=== PATIENT | female | born 1955 | race Caucasian/White ===

== ENCOUNTER → 2016-12-22 | Outpatient (CLI) | payer MEDICARE ==
[~2016-12-22] MED LIST: CIPR500T89 PO; GABA-283 PO; HYDR2TAB2 PO; LEVO150T7 PO; LEVO200T3 PO; LIPI20TA PO; METH4TAB28 PO; NORT50CA PO; OXYB5TAB10 PO; OXYC1SOL PO; OXYCODONE; PEPC1TAB4 PO; PROZ20CA11 PO; TRAZO50TA PO
[2016-12-22 17:32] LABS: CALCIUM LEVEL 9.1 MG/DL (8.8-10.2); CREATININE FOR GFR 1.02 MG/DL (0.55-1.02); GLOMERULAR FILTRATION RATE 58.8 (>45); POTASSIUM SERUM 4.2 MEQ/L (3.5-5.1)
== END ==
LOC: M SMT 12:17
PROVIDERS: ATTEND Nurse Practitioner Women's Health
DX: N20.0 Calculus of kidney (principal); R31.0 Gross hematuria
CPT/HCPCS: 36415; 80048; 81001; 87086; G0463

== ENCOUNTER → 2016-12-31 | Outpatient (CLI) | payer MEDICARE ==
[~2016-12-31] MED LIST changes: +ISOVUE-370 76% 100ML VIAL (Q9967) As Ordered ONE
--- NOTE | 2016-12-31 16:44 | REP ---
CT of the abdomen pelvis multiphase scanning without and with IV contrast: The study is initially performed without IV contrast. This is followed by IV contrast enhanced scanning during the to arterial phase of enhancement and later during the delayed equilibrium phase of enhancement. Comparison is 08/18/2015. There is an extrarenal pelvis of the right kidney as an anatomic variant. There is a staghorn calculus in the right kidney. This calculus has migrated into the extrarenal portion of the right renal pelvis as a change from the comparison study. After IV contrast on the delayed images there is mild right hydronephrosis and mild distension of the right renal pelvis as an interval change. Contrast can be seen filling the proximal most portion of the right ureter. There is no contrast in the mid or distal right ureter. Findings are compatible with obstructive uropathy of the right ureter, likely secondary to the migrated staghorn calculus. There is a barely visible 2 mm nonobstructive calculus at the extreme lower pole of the right kidney posteriorly. There is a 3 mm nonobstructive calculus in the lower pole moisés of the left kidney. There is no left hydronephrosis. The left ureter is opacified in entirety to the urinary bladder. The visualized lung cameron are unremarkable. The hepatic parenchyma, gallbladder, pancreas and spleen are unremarkable. The adrenals, abdominal aorta, bowel and mesentery are unremarkable. Pelvis: The bladder is unremarkable. There is a hysterectomy. The vaginal cuff and adnexa are unremarkable. There is no ascites or adenopathy. There is descending colon and sigmoid colon diverticulosis without diverticulitis. Impression: There is a staghorn calculus in the right renal pelvis. I suspect this calculus has migrated and now results in obstruction of the proximal right ureter with mild right hydronephrosis as discussed in the body of the report. There is a nonobstructive calculus in the lower pole of the right kidney. There is nonobstructive calculi in the left kidney. There is no left hydronephrosis. There is diverticulosis without diverticulitis. Signed by Fredrick Aleman MD 12/31/2016 04:36 P
== END ==
LOC: M RAD 12:52
PROVIDERS: ATTEND Nurse Practitioner Women's Health
DX: N20.0 Calculus of kidney (principal); R31.0 Gross hematuria; K57.30 Diverticulosis of large intestine without perforation or abscess without bleeding
CPT/HCPCS: 74178; Q9967

== ENCOUNTER → 2017-02-04 | Outpatient (REF) | payer MEDICARE ==
[~2017-02-04] MED LIST changes: -ISOVUE-370 76% 100ML VIAL (Q9967) As Ordered ONE
== END ==
LOC: M LABSMT 12:10
PROVIDERS: ATTEND Urology
DX: Z01.818 Encounter for other preprocedural examination (principal); N39.0 Urinary tract infection, site not specified

== ENCOUNTER 2017-02-10 17:32 | Emergency (ER) | payer MEDICARE ==
[~2017-02-10] VITALS: Ht 162.6 cm; Wt 71.3 kg
[~2017-02-10 17:32] MED LIST changes: -OXYCODONE
[2017-02-10] MEDS ORDERED: MORPHINE 4 MG/ML 1ML SYRINGE IV ONE (18:00)
[2017-02-10] MEDS ORDERED: ONDANSETRON 4MG/2ML VIAL (J2405) IV ONE (18:00)
[2017-02-10] MEDS ORDERED: NS 1,000 ML IV ONE (18:00)
[2017-02-10 18:45] LABS: MICROSCOPIC INDICATED? MAN YES (NO); RBC, URINE TNTC /hpf (0-3); WBC, URINE NONE SEEN /hpf (0-3)
[2017-02-10 18:46] LABS: BACTERIA, URINE NONE SEEN; HYALINE CAST, URINE NONE SEEN /lpf (0-1); MICROSCOPIC EXAM PERFORMED; SQUAMOUS EPITHELIAL CELL URINE NONE SEEN /hpf (SMALL AMT)
[2017-02-10 19:04] LABS: INR 0.88
[2017-02-10 19:05] LABS: BASO # 0.1 K/mm3 (0.0-0.2); BASO % 0.4 % (0.0-1.0); EOS # 0.1 K/mm3 (0.0-0.50); EOS % 0.8 % (0.0-3.0); LARGE UNSTAINED CELL # 0.1 K/mm3 (0.0-0.4); LARGE UNSTAINED CELL % 0.3 % (0.0-4.0); LYMPH # 1.8 K/mm3 (1.5-4.5); LYMPH % 11.7 % (24.0-44.0); MEAN CORPUSCULAR HEMOGLOBIN 31.8 pg (27.0-33.0); MEAN CORPUSCULAR HGB CONC 34.3 g/dl (32.0-36.5); MEAN CORPUSCULAR VOLUME 92.8 fl (80.0-96.0); MONO # 0.6 K/mm3 (0.0-0.8); MONO % 4.3 % (0.0-5.0); NEUTROPHILS # 12.4 K/mm3 (1.8-7.7); NEUTROPHILS % 82.5 % (36.0-66.0); PLATELET COUNT, AUTOMATED 297 k/mm3 (150-450); RED CELL DISTRIBUTION WIDTH 13.2 % (11.5-14.5)
[2017-02-10 19:31] LABS: ALBUMIN 3.7 GM/DL (3.2-5.2); ALBUMIN/GLOBULIN RATIO 1.09 (1.00-1.93); ALKALINE PHOSPHATASE 73 U/L (45-117); ALT/SGPT 24 U/L (12-78); ANION GAP 10 MEQ/L (8-16); AST/SGOT 14 U/L (15-37); BILIRUBIN,DIRECT 0.1 MG/DL (0.0-0.2); BILIRUBIN,TOTAL 0.6 MG/DL (0.2-1.0); BLOOD UREA NITROGEN 12 MG/DL (7-18); CALCIUM LEVEL 8.7 MG/DL (8.8-10.2); CARBON DIOXIDE LEVEL 25 MEQ/L (21-32); CHLORIDE LEVEL 106 MEQ/L (98-107); CREATININE FOR GFR 0.87 MG/DL (0.55-1.02); GLOMERULAR FILTRATION RATE > 60.0 (>45); GLUCOSE, FASTING 113 MG/DL (80-110); POTASSIUM SERUM 3.7 MEQ/L (3.5-5.1); SODIUM LEVEL 141 MEQ/L (136-145); TOTAL PROTEIN 7.1 GM/DL (6.4-8.2)
[2017-02-10] MEDS ORDERED: KETOROLAC 30 MG/ML VIAL (J1885) IV ONE (20:00)
[2017-02-10 20:32] VITALS: BP 145/100
[2017-02-11] MEDS ORDERED: OXYCODONE (07:38)
== END 2017-02-10 20:40 | disposition home or self-care (01) ==
LOC: M ED 17:32
DX: R31.9 Hematuria, unspecified (principal); R10.9 Unspecified abdominal pain; R11.0 Nausea; Z87.442 Personal history of urinary calculi; E07.9 Disorder of thyroid, unspecified; M51.9 Unspecified thoracic, thoracolumbar and lumbosacral intervertebral disc disorder; F32.9 Major depressive disorder, single episode, unspecified; Z87.891 Personal history of nicotine dependence

== ENCOUNTER 2017-02-11 07:00 | Inpatient (IN) | payer MEDICARE ==
[~2017-02-11] VITALS: Ht 162.6 cm; Wt 73.0 kg
[2017-02-11] MEDS ORDERED: OXYCODONE (07:38)
[2017-02-11] MEDS ORDERED: ROCURONIUM BROMIDE 50 MG/5 ML VIAL/SYRINGE As Ordered ONE (08:03)
[2017-02-11] MEDS ORDERED: PROPOFOL 200 MG/20 ML VIAL As Ordered ONE (08:03)
[2017-02-11] MEDS ORDERED: LIDOCAINE 2% INJ 100 MG/5 ML SDV (FOR ANES.) As Ordered ONE (08:03)
[2017-02-11] MEDS ORDERED: MIDAZOLAM INJ 2 MG/2 ML VIAL (J2250) As Ordered ONE (08:04)
[2017-02-11] MEDS ORDERED: fentaNYL 100 MCG/2 ML INJECTION (J3010) As Ordered ONE ×2 (08:04→09:24)
[2017-02-11] MEDS ORDERED: CONRAY-60 60% 50ML VIAL (Q9961) As Ordered ONE (08:10)
[2017-02-11] MEDS ORDERED: LR 1,000 ML IV ONE (08:15)
[2017-02-11] MEDS ORDERED: PERCOCET 5MG/325MG TAB PO PRN ×2 (08:45→10:30)
[2017-02-11] MEDS ORDERED: traZODone 50 MG TAB PO PRN (08:45)
[2017-02-11] MEDS ORDERED: MORPHINE 2 MG/ML 1ML SYRINGE IV PRN (08:45)
[2017-02-11] MEDS ORDERED: oxyBUTYnin 5 MG TAB PO PRN (08:45)
[2017-02-11] MEDS ORDERED: ACETAMINOPHEN TAB 650MG DOSE (2X325MG) PO PRN (08:45)
[2017-02-11] MEDS ORDERED: ONDANSETRON 4MG/2ML VIAL (J2405) IV PRN ×2 (08:45→10:30)
[2017-02-11] MEDS ORDERED: ePHEDrine SULFATE 25 MG/5 ML(5MG/ML) SYRINGE As Ordered ONE ×2 (09:04→09:06)
[2017-02-11] MEDS ORDERED: PHENYLephrine HCL 500 MCG/5 ML (100MCG/ML) SYRINGE (J2370) As Ordered ONE (09:06)
[2017-02-11] MEDS ORDERED: GLYCOPYRROLATE INJ 0.2 MG/ML 2 ML VIAL As Ordered ONE (09:23)
[2017-02-11] MEDS ORDERED: NEOSTIGMINE 1MG/ML 5 ML SYRINGE (J2710) As Ordered ONE (09:23)
[2017-02-11] MEDS ORDERED: ONDANSETRON 4MG/2ML VIAL (J2405) As Ordered ONE (09:24)
--- NOTE | 2017-02-11 10:29 | ROOPDOC ---
[facility] Report Of Operation Report of Operation DATE OF PROCEDURE: 02/11/2017 PREPROCEDURE DIAGNOSIS: Right kidney stone. POSTPROCEDURE DIAGNOSIS: Right kidney stone. PROCEDURE: Right percutaneous nephrolithotomy, Right antegrade nephrostogram with intraoperative interpretation of images, right ureteral stent placement. SURGEON: Rola Walton MD DATA SOLUTIONS ARCHITECT: None. ANESTHESIA: General. OPERATIVE INDICATIONS: This is a 61-year-old female who was found to have an approximately 2 cm right renal pelvic stone. She previously had a right nephroureteral stent placed. She was brought to the operating room today for the above listed procedure. DESCRIPTION OF PROCEDURE: The patient was brought to the operating room and general anesthesia was induced. Prophylactic antibiotics were infused. She then had a Arizmendi catheter placed under sterile conditions. She was then placed in the prone position with all pressure points appropriately padded. She was then prepped and draped in the usual sterile fashion in preparation for a right percutaneous nephrolithotomy. The previously placed right nephroureteral stent was then utilized to advance a Super Stiff Guidewire down the right collecting system. The nephroureteral stent was then removed leaving the wire in place. Next, an approximately 3-4 cm skin incision was made adjacent to the wire. I then advanced a dual lumen ureteral catheter over the wire into the right collecting system. An antegrade nephrostogram was performed and was negative for extravasation. It was notable for a the filling defect associated with the stone. At this point, the other lumen of the catheter was utilized to advance a Sensor wire down the right collecting system. The dual lumen ureteral catheter was then removed leaving both wires in place. The Sensor was then secured to the drape to serve as a safety wire. We then utilized the Super Stiff wire to advance a balloon dilator down into the right renal pelvis. The balloon was then inflated and left in place for a few seconds. We then advanced an access sheath over the balloon into the right collecting system. The balloon was then let down and removed leaving the access sheath and the wire in place. Next, we went in the access sheath with the nephroscope and the kidney was thoroughly examined and a large stone was seen in the renal pelvis. The stone was then fragmented into several small pieces and suctioned out using a CyberWand. We then examined the kidney thoroughly with the nephroscope as well as a flexible cystoscope and no additional stone fragments were seen. The proximal ureter was also examined and no stones were seen in it. At this point, the nephroscope was removed and a 7 Danish x 22-32 cm JJ ureteral stent was advanced over the wire down into the right collecting system. The wire was then removed and there were adequate curls of the stent in the right renal pelvis and in the bladder. At this point, the access sheath was then removed and the Sensor wire was utilized to advance an 18 [place] tip catheter into the right renal pelvis. The balloon was then inflated with about 3 mL of contrast. The wire was then removed and an antegrade nephrostogram was shot through the [place] tip catheter and it was negative for extravasation. It confirmed that the [place] catheter was in the correct place. The [place] tip catheter was then connected to gravity drainage and was secured to the skin with a #3-0 silk suture. Dressings were then applied and this marked conclusion of the procedure. The patient was then taken out of the prone position, awakened from anesthesia and transported to the recovery room in stable condition. ESTIMATED BLOOD LOSS: 25 mL. COMPLICATIONS: None. SPECIMENS: Kidney stone fragments. PLAN: The patient will be admitted to the hospital overnight. She will likely have her nephrostomy catheter and Arizmendi removed tomorrow. She will be discharged home with a stent in place for the next 2-3 weeks. ROLA WALTON MD Feb 11, 2017 10:29
[2017-02-11] MEDS ORDERED: MEPERIDINE INJ 25 MG/ML VIAL (J2175) IV PRN (10:30)
[2017-02-11] MEDS ORDERED: LR 1,000 ML IV SCH (10:30)
[2017-02-11] MEDS ORDERED: METOCLOPRAMIDE INJ 10MG/2ML VIAL (J2765) IV PRN (10:30)
[2017-02-11 10:41] LABS: MEAN CORPUSCULAR HEMOGLOBIN 32.4 pg (27.0-33.0); MEAN CORPUSCULAR HGB CONC 34.2 g/dl (32.0-36.5); MEAN CORPUSCULAR VOLUME 94.9 fl (80.0-96.0); WHITE BLOOD COUNT 10.2 K/mm3 (4.0-10.0)
--- NOTE | 2017-02-11 10:43 | REP ---
Retrograde pyelogram: 11 views. History: Percutaneous nephrolithotomy. 1 minute 5 seconds of fluoroscopy time is reported. Findings: A sequence of 11 last image hold fluoroscopic spot radiographs of the right abdomen document percutaneous nephrolithotomy procedure. Signed by Viet Harrison MD 02/11/2017 02:47 P
[2017-02-11] MEDS: fentaNYL 100 MCG/2 ML INJECTION (J3010) IV PRN ×8 (10:44→11:55)
[2017-02-11 10:52] LABS: CALCIUM LEVEL 8.1 MG/DL (8.8-10.2); CREATININE FOR GFR 1.02 MG/DL (0.55-1.02); GLOMERULAR FILTRATION RATE 58.8 (>45); POTASSIUM SERUM 3.8 MEQ/L (3.5-5.1)
[2017-02-11 13:30] VITALS: BP 117/71
[2017-02-11] MEDS: NS 1,000 ML IV SCH ×2 (13:51→21:43)
[2017-02-11] MEDS: GABAPENTIN 400 MG CAP PO SCH ×3 (13:52→21:44)
[2017-02-11] MEDS: PERCOCET 5MG/325MG TAB PO PRN ×2 (13:52→18:12)
[2017-02-11] MEDS: FLUoxetine 20 MG CAP PO SCH (13:53)
[2017-02-11 14:00] VITALS: BP 121/82
[2017-02-11] MEDS: FAMOTIDINE 20 MG TAB PO SCH ×2 (14:30→21:44)
[2017-02-11] MEDS: DOCUSATE SODIUM 100 MG CAP PO SCH ×2 (14:30→21:44)
[2017-02-11 15:00] VITALS: BP 123/79
[2017-02-11] MEDS: ceFAZolin SOD 1 GM in D5W MINI-BAG PLUS 50 ML IV SCH (16:40)
[2017-02-11] MEDS ORDERED: ATORVASTATIN 20 MG TAB PO SCH (21:00)
[2017-02-11] MEDS ORDERED: NORTRIPTYLINE 25 MG CAP PO SCH (21:00)
[2017-02-11 22:00] VITALS: BP 115/66
[2017-02-12] MEDS: NS 1,000 ML IV SCH ×2 (01:00→06:06)
[2017-02-12] MEDS: ceFAZolin SOD 1 GM in D5W MINI-BAG PLUS 50 ML IV SCH (01:50)
[2017-02-12] MEDS: PERCOCET 5MG/325MG TAB PO PRN ×2 (01:53→09:04)
[2017-02-12 06:00] VITALS: BP 131/76
[2017-02-12] MEDS ORDERED: LEVOTHYROXINE 150MCG TABLET (0.15MG) PO SCH (06:00)
[2017-02-12 07:21] LABS: MEAN CORPUSCULAR HEMOGLOBIN 32.1 pg (27.0-33.0); MEAN CORPUSCULAR HGB CONC 33.5 g/dl (32.0-36.5); MEAN CORPUSCULAR VOLUME 95.6 fl (80.0-96.0); RED CELL DISTRIBUTION WIDTH 13.4 % (11.5-14.5); WHITE BLOOD COUNT 8.2 K/mm3 (4.0-10.0)
[2017-02-12 07:22] LABS: ANION GAP 8 MEQ/L (8-16); BLOOD UREA NITROGEN 8 MG/DL (7-18); CALCIUM LEVEL 7.7 MG/DL (8.8-10.2); CARBON DIOXIDE LEVEL 26 MEQ/L (21-32); CHLORIDE LEVEL 111 MEQ/L (98-107); CREATININE FOR GFR 0.84 MG/DL (0.55-1.02); GLOMERULAR FILTRATION RATE > 60.0 (>45); GLUCOSE, FASTING 82 MG/DL (80-110); POTASSIUM SERUM 3.8 MEQ/L (3.5-5.1); SODIUM LEVEL 145 MEQ/L (136-145)
[2017-02-12] MEDS: DOCUSATE SODIUM 100 MG CAP PO SCH (09:03)
[2017-02-12] MEDS: GABAPENTIN 400 MG CAP PO SCH (09:04)
[2017-02-12] MEDS: FAMOTIDINE 20 MG TAB PO SCH (09:04)
[2017-02-12] MEDS: FLUoxetine 20 MG CAP PO SCH (09:04)
--- NOTE | 2017-02-12 09:35 | IPNPDOC ---
Assessment/Plan Date Seen The patient was seen on 02/12/17. Patient Summary This is a 61 y/o F POD1 s/p right PCNL. Labs are w/i normal limits. Urine is clearing. UOP has been very good. Plan/VTE VTE Prophylaxis Ordered?: Yes VTE Exclusion Mechanical Proph: N/A:VTE Prophy Ordered Plan/Urinary Catheter Urinary Catheter: D/C Arizmendi Plan - right nephrostomy catheter removed - will d/c her Arizmendi catheter - percocet prn pain - d/c IVF - ambulate - strict I/Os - plan for discharge home after the patient voids Subjective Review oF Systems Chief Complaint The patient is a 61-year-old female admitted with a reason for visit of Kidney Stone. Events since Last Encounter No acute events o/n. Pain is well-controlled. No n/v. Tolerating regular diet. No f/c/ns. Objective Physical Examination General Exam: Alert, Cooperative, No Acute Distress ABDOMEN EXAM: Soft Skin Exam: Nl turgor and temperature Neuro Exam: Normal Speech Psych Exam: Mental status NL, Mood NL Other physical findings right nephrostomy catheter draining pink urine; urethral catheter draining clear urine Vital Signs/I&O Vital Signs Date Time Temp Pulse Resp B/P (MAP) Pulse Ox O2 Delivery O2 Flow Rate FiO2 02/12/17 09:04 12 02/12/17 06:00 98.4 74 131/76 (94) 96 Room Air 02/11/17 10:11 2 I&O- Last 24 Hours up to 6 AM 02/12/17 06:00 Intake Total 1690 ml Output Total 2935 ml Balance -1245 ml Laboratory Data Labs 24H Laboratory Tests 2 02/11/17 09:44: 02/11/17 10:27: Anion Gap 9, Glomerular Filtration Rate 58.8, Blood Urea Nitrogen 13, Creatinine 1.02, Sodium Level 143, Potassium Level 3.8, Chloride Level 108H, Carbon Dioxide Level 26, Calcium Level 8.1L 02/12/17 06:25: Anion Gap 8, Glomerular Filtration Rate > 60.0, Blood Urea Nitrogen 8, Creatinine 0.84, Sodium Level 145, Potassium Level 3.8, Chloride Level 111H, Carbon Dioxide Level 26, Calcium Level 7.7L CBC/BMP Laboratory Tests 02/11/17 10:27 Red Blood Count 4.36, Mean Corpuscular Volume 94.9, Mean Corpuscular Hemoglobin 32.4, Mean Corpuscular Hemoglobin Concent 34.2, Red Cell Distribution Width 13.0 , Calcium Level 8.1 L 02/12/17 06:25 Red Blood Count 3.86 L, Mean Corpuscular Volume 95.6, Mean Corpuscular Hemoglobin 32.1, Mean Corpuscular Hemoglobin Concent 33.5, Red Cell Distribution Width 13.4, Calcium Level 7.7 L ROLA WALTON MD Feb 12, 2017 09:35
--- NOTE | 2017-02-21 13:59 | DSES ---
DATE OF ADMISSION: 02/11/2017 DATE OF DISCHARGE: 02/12/2017 ADMISSION DIAGNOSIS: Kidney stone. DISCHARGE DIAGNOSIS: Kidney stone. ADMITTING PHYSICIAN: Dr. Michael Cano. DISCHARGE PHYSICIAN: Dr. Michael Cano. PROCEDURES PERFORMED: Right percutaneous nephrolithotomy. HISTORY OF PRESENT ILLNESS: This is a 61-year-old female who came to the hospital for a right percutaneous nephrolithotomy on 02/11/2017. She was admitted to the hospital postoperatively. HOSPITALIZATION COURSE: Patient's hospitalization course was unremarkable. By postoperative day 1, her pain was well controlled. All of her labs were within normal limits. Her right nephrostomy catheter was removed the morning of postoperative day 1. Her Arizmendi catheter was removed and she voided without any difficulty. Since her pain is well controlled and she is tolerating regular diet, she was discharged home on 02/12/2017 in good condition. She was discharged home with the plan for her to followup in the clinic in a few weeks for stent removal.
[2017-02-23 14:12] LABS: Uric Acid 10 % (.)
== END 2017-02-12 12:15 | disposition home or self-care (01) | DRG 661 ==
LOC: M OR 07:00 → M MS5PR 13:18
PROVIDERS: ADMIT Urology; ATTEND Urology
PROC: 0TC48ZZ Extirpation of Matter from Left Kidney Pelvis, Via Natural or Artificial Opening Endoscopic (ICD-10-PCS; 2017-02-11)
PROC: 0TF Urinary System, Fragmentation (ICD-10-PCS; principal; 2017-02-11 08:30)
DX: N20.0 Calculus of kidney (principal); R31.9 Hematuria, unspecified

== ENCOUNTER 2017-02-16 18:45 | Emergency (ER) | payer MEDICARE ==
[~2017-02-16] VITALS: Ht 162.6 cm; Wt 71.4 kg
[~2017-02-16 18:45] MED LIST changes: +OXYCODONE
[2017-02-16] MEDS ORDERED: HYDROmorphone HCL 1 MG/ML SYRINGE (J1170) As Ordered ONE (19:23)
[2017-02-16] MEDS ORDERED: HYDROmorphone HCL 1 MG/ML SYRINGE (J1170) IV ONE (19:45)
[2017-02-16] MEDS ORDERED: NS 1,000 ML IV ONE (19:45)
[2017-02-16 20:11] LABS: BASO % 0.2 % (0.0-1.0); EOS # 0.3 K/mm3 (0.0-0.50); EOS % 2.6 % (0.0-3.0); LARGE UNSTAINED CELL # 0.1 K/mm3 (0.0-0.4); LARGE UNSTAINED CELL % 1.1 % (0.0-4.0); LYMPH # 1.9 K/mm3 (1.5-4.5); LYMPH % 16.2 % (24.0-44.0); MEAN CORPUSCULAR HEMOGLOBIN 32.4 pg (27.0-33.0); MEAN CORPUSCULAR HGB CONC 34.7 g/dl (32.0-36.5); MEAN CORPUSCULAR VOLUME 93.5 fl (80.0-96.0); MONO # 0.4 K/mm3 (0.0-0.8); NEUTROPHILS # 9.1 K/mm3 (1.8-7.7); NEUTROPHILS % 76.9 % (36.0-66.0); PLATELET COUNT, AUTOMATED 364 k/mm3 (150-450); RED CELL DISTRIBUTION WIDTH 13.3 % (11.5-14.5); WHITE BLOOD COUNT 11.8 K/mm3 (4.0-10.0)
[2017-02-16 20:34] LABS: ANION GAP 7 MEQ/L (8-16); BLOOD UREA NITROGEN 8 MG/DL (7-18); CALCIUM LEVEL 8.6 MG/DL (8.8-10.2); CARBON DIOXIDE LEVEL 26 MEQ/L (21-32); CHLORIDE LEVEL 113 MEQ/L (98-107); GLOMERULAR FILTRATION RATE > 60.0 (>45); GLUCOSE, FASTING 109 MG/DL (80-110); SODIUM LEVEL 146 MEQ/L (136-145)
[2017-02-16 20:39] LABS: POTASSIUM SERUM 4.7 MEQ/L (3.5-5.1)
[2017-02-16] MEDS ORDERED: MORPHINE 4 MG/ML 1ML SYRINGE As Ordered ONE (20:44)
[2017-02-16] MEDS ORDERED: MORPHINE 4 MG/ML 1ML SYRINGE IV ONE (21:00)
[2017-02-16] MEDS ORDERED: ISOVUE-370 76% 100ML VIAL (Q9967) As Ordered ONE (21:39)
--- NOTE | 2017-02-16 22:40 | REPUSA ---
CT of the abdomen and pelvis with contrast Clinical statement: Pain, postoperative bleeding. Technique: Multiple axial CT images were obtained from the base of the lungs through the floor of the pelvis utilizing 5 mm axial slices after administration of oral and nonionic intravenous contrast. C oronal and sagittal reconstructions were also obtained. Comparison: 12/31/2016. Findings: Chest: The visualized lung bases are clear. Abdomen: There is a large, right renal pericapsular hematoma measuring approximately 8.9 x 3.0 x 10.4 cm. Postsurgical low attenuation linear area within the inferior right is noted. The renal parenchym a enhances appropriately however. Large amount of perinephric complex fluid is seen, extending around the inferior hepatic border and into the gallbladder fossa. A right ureteral stent is in place. Ther e is a simple cyst in the inferior right kidney, measuring 1.4 x 1.1 cm. There is no evidence of hydr onephrosis. The liver, spleen, pancreas, gallbladder, left kidney and adrenal glands are unremarkable . The aorta is within normal limits. There is no evidence of abdominal lymphadenopathy or ascites. Pelvis: The bowel is unremarkable, with no obstructive or inflammatory changes. There is moderate sig moid diverticulosis. The urinary bladder is within normal limits. There is a small on of hyperdensity along the distal aspect of the right ureteral stent, which could represent hemorrhage. The other pel daquan structures appear grossly intact. There is no evidence of pelvic lymphadenopathy or ascites. Bones: There are no suspicious osseous abnormalities seen. Moderate sclerosis with a disc osteophyte complexes seen it L2/L3. Impression: 1. Large perinephric and pericapsular hematoma in the right kidney as described, with fluid extending in the perihepatic and pericholecystic regions. The remainder of the kidney enhances appropriately h owever. 2. Right ureteral stent is in place. No evidence of hydronephrosis at this time. Small amount of hemo rrhage/clot is seen along the distal stent within the urinary bladder. ER physician was notified of these findings at 10:30 PM on 02/16/2017.
--- NOTE | 2017-02-17 00:18 | SMCUROLCON ---
Urology Consultation General Date of Consultation 02/17/17 Reason For Consultation This patient is seen for Surgical Site Bleeding. History of Present Illness This is a 61 y/o F who is s/p a right PCNL on 02/11/17, presenting to the ER after the acute onset of heavy bleeding from her right flank incision and in her urine today. The patient notes that after she was discharged from the hospital she continued to have small amounts of drainage from the right flank incision. She also noted that her urine never cleared but remained pinkish. She notes that today she started cleaning around the house and at some point she started coughing, and at this point large amounts of blood started coming from her flank incision. She also notes that when she voided after this point, her urine was completely red and had clots in it. In the ER a CT A/P w/ IV contrast was performed and was notable for a 10cm right perinephric hematoma. At this time the patient notes moderate right flank pain. Since she has been in the ER the dressing on her flank incision has only been changed once. She denies fevers or chills. Denies chest pain or SOB. Past Medical History Medical History nephrolithiasis Surgical Hstory right PCNL, prior ureteroscopy Allergies Allergies: Coded Allergies: Penicillins (Verified Allergy, Unknown, 08/29/12) Penicillins Cross Reactors (Verified Allergy, Unknown, 08/29/12) Amoxicillin (Unverified Adverse Reaction, Mild, vomiting, 01/28/17) Clavulanic Acid (Verified Adverse Reaction, Mild, VOMITING, 01/28/17) Review of Systems General: Reports: Normal Appetite, Denies: Fatigue, Malaise Constitutional: Denies: Fever, Chills Skin: Denies: Rash, Lesions, Breakdown, Nail Changes Pulmonary: Denies: Dyspnea, Cough Cardiovascular: Denies Chest Pain, Denies Palpitations Gastrointestinal: Denies: Nausea, Vomiting Genitourinary: Reports: Hematuria Musculoskeletal: Reports: Back Pain (right flank pain) Psych: Reports: Mood Normal Physical Examination General Exam: Alert, Cooperative ENT EXAM: Atraumatic Chest Exam: Clear to auscultation Heart Exam: Rate Normal, Regular Rhythm Abdomen Exam: Soft, Other (dressing over right flank incision removed - dressing not soaked - flank incision did not appear to be actively draining blood) Skin Exam: Nl turgor and temperature Neuro Exam: Normal Speech Psych Exam: Mental status NL, Mood NL Vital Signs/I&O Vital Signs Date Time Temp Pulse Resp B/P (MAP) Pulse Ox O2 Delivery O2 Flow Rate FiO2 02/16/17 23:19 70 139/78 (98) 99 02/16/17 21:00 18 Room Air 02/16/17 20:42 97.6 Laboratory Data 24H Labs Laboratory Tests 2 02/16/17 19:44: White Blood Count 11.8H, Red Blood Count 3.36L, Hemoglobin 10.9L, Hematocrit 31.4L, Mean Corpuscular Volume 93.5, Mean Corpuscular Hemoglobin 32.4, Mean Corpuscular Hemoglobin Concent 34.7, Red Cell Distribution Width 13.3, Platelet Count 364, Neutrophils (%) (Auto) 76.9H, Lymphocytes (%) (Auto) 16.2L, Monocytes (%) (Auto) 3.0, Eosinophils (%) (Auto) 2.6, Basophils (%) (Auto) 0.2, Neutrophils # (Auto) 9.1H, Lymphocytes # (Auto) 1.9, Monocytes # (Auto) 0.4, Eosinophils # (Auto) 0.3, Basophils # (Auto) 0.0, Large Unclassified Cells % 1.1 , Large Unclassified Cells # 0.1, Anion Gap 7L, Glomerular Filtration Rate > 60.0, Blood Urea Nitrogen 8, Creatinine 1.00, Sodium Level 146H, Potassium Level 4.7, Chloride Level 113H, Carbon Dioxide Level 26, Calcium Level 8.6L CBC/BMP Laboratory Tests 02/16/17 19:44 Red Blood Count 3.36 L, Mean Corpuscular Volume 93.5, Mean Corpuscular Hemoglobin 32.4, Mean Corpuscular Hemoglobin Concent 34.7, Red Cell Distribution Width 13.3, Neutrophils (%) (Auto) 76.9 H, Lymphocytes (%) (Auto) 16.2 L, Monocytes (%) (Auto) 3.0, Eosinophils (%) (Auto) 2.6, Basophils (%) ( Auto) 0.2, Neutrophils # (Auto) 9.1 H, Lymphocytes # (Auto) 1.9, Monocytes # ( Auto) 0.4, Eosinophils # (Auto) 0.3, Basophils # (Auto) 0.0, Calcium Level 8.6 L Assessment This is a 61 y/o F who is s/p a right PCNL on 02/11/17, admitted w/ acute onset of bleeding from her flank incision and heavy amounts of hematuria, found to have a large right perinephric hematoma. Given the acute onset of bleeding I am concerned about a pseudoaneurysm. Her vitals are currently stable and her Hb is 10.9, not down much from her discharge Hb of 12.4. If she continues to bleed, she will need to go to interventional radiology for angiogram and possible angioembolization. As we do not have that capability here at [facility] , I recommended she be transferred to the closest institution that has an interventional radiologist on staff. Plan - check coags - type and screen - IVF hydration - bedrest - NPO - recommend transfer to nearest institution w/ IR available in case of the need for angioembolization - plan of care discussed with ER attending Dr. Tyree WALTON,ROLA Bey MD Feb 17, 2017 00:16
[2017-02-17 00:32] LABS: INR 0.95
[2017-02-17] MEDS ORDERED: MORPHINE 4 MG/ML 1ML SYRINGE IV ONE (01:15)
[2017-02-17 03:14] VITALS: BP 114/67
[2017-02-17] MEDS ORDERED: HYDROmorphone HCL 1 MG/ML SYRINGE (J1170) IV ONE (03:15)
== END 2017-02-17 03:19 | disposition short-term general hospital (02) ==
LOC: M ED 18:45
DX: N99.820 Postprocedural hemorrhage of a genitourinary system organ or structure following a genitourinary system procedure (principal); N28.89 Other specified disorders of kidney and ureter; Z96.0 Presence of urogenital implants; E03.9 Hypothyroidism, unspecified; Z87.442 Personal history of urinary calculi; F32.9 Major depressive disorder, single episode, unspecified; M54.9 Dorsalgia, unspecified; G43.909 Migraine, unspecified, not intractable, without status migrainosus; Z87.891 Personal history of nicotine dependence; Z79.899 Other long term (current) drug therapy; Z88.0 Allergy status to penicillin
CPT/HCPCS: 74177; 80048; 85014; 85018; 85025; 85610; 85730; 96374; 96375; 96376; 99285; J1170; Q9967

== ENCOUNTER → 2017-10-05 | Outpatient (CLI) | payer MEDICARE ==
[2017-10-05 19:53] LABS: APPEARANCE, URINE HAZY (CLEAR); BACTERIA, URINE AUTO NEGATIVE (NEGATIVE); BILIRUBIN, URINE AUTO NEGATIVE (NEGATIVE); BLOOD, URINE BLOOD NEGATIVE (NEGATIVE); COLOR, URINE YELLOW (YELLOW); GLUCOSE, URINE (UA) AUTO NEGATIVE (NEGATIVE); KETONE, URINE AUTO NEGATIVE (NEGATIVE); LEUKOCYTE ESTERASE, URINE AUTO TRACE (NEGATIVE); MUCUS, URINE SMALL (NEGATIVE); NITRITE, URINE AUTO NEGATIVE (NEGATIVE); PROTEIN, URINE AUTO NEGATIVE (NEGATIVE); RBC, URINE AUTO 5 /HPF (0-3); SQUAMOUS EPITHELIAL CELL UR AU 4 /HPF (0-6); UROBILINOGEN, URINE AUTO 0.2 mg/dL (0.0-2.0); WBC, URINE AUTO 4 /HPF (0-3)
== END ==
LOC: M SMT 13:35
DX: R31.0 Gross hematuria (principal); N20.0 Calculus of kidney
CPT/HCPCS: 81001